=== PATIENT | female | born 1965 | race Caucasian/White ===

== ENCOUNTER 2016-06-04 12:47 | Emergency (ER) ==
[2016-06-04 12:59] VITALS: BP 134/78
--- NOTE | 2016-06-04 14:04 | PROVIDER DOCUMENTATION ---
HPI-Musculoskeletal Pain/Inj - GENERAL Source: patient - HX OF PRESENT ILLNESS-MUSKULOSKELTAL Quality of Pain: reports: dull Severity in ED: mild, moderate Onset/Duration: gradual, other (2 weeks) <Júnior Gavin - Last Filed: 06/04/16 14:04> - GENERAL Source: patient - HX OF PRESENT ILLNESS-MUSKULOSKELTAL Timing: still present, constant Modifying Factors: worse with: movement Any recent injury?: No Locality of Occurance: Home Similar Symptoms Previously?: No Recently seen or treated by another doctor?: No - LOWER EXTREMITY PAIN/INJURY Lower Extremities Pain: knee: right Context / Method of Injury: reports: unknown Associated Symptoms: reports: denies symptoms <Ethan Thompson - Last Filed: 06/04/16 14:09> - GENERAL Chief Complaint: Extremity Pain Stated Complaint: EXTREMITY PAIN Time Seen by Provider: 06/04/16 13:45 Review of Systems - Adult - REVIEW OF SYSTEMS - ADULT Constitutional: denies: chills, fever Eyes: reports: no symptoms reported Ears, Nose, Mouth & Throat: reports: no symptoms reported Cardiovascular: denies: chest pain, palpitations Respiratory: denies: cough, shortness of breath, wheezing Gastrointestinal: denies: abdominal pain, diarrhea, nausea, vomiting Genitourinary: reports: no symptoms reported Musculoskeletal: reports: joint pain. denies: back pain, joint swelling, neck pain Integumentary: reports: no symptoms reported Neurological: reports: no symptoms reported Psychiatric: reports: no symptoms reported Endocrine: reports: no symptoms reported Hematologic/Lymphatic: reports: no symptoms reported Allergic/Immunologic: reports: no symptoms reported All Other Systems: Reviewed and Negative <Ethan Thompson - Last Filed: 06/04/16 14:09> Past History - Adult - PAST MEDICAL HISTORY-ADULT Major Childhood Illnesses: reports: denies history Cardiovascular: reports: denies history Respiratory: reports: denies history Gastrointestinal: reports: denies history Obstetrical/Gynecological: reports: denies history Genitourinary: reports: denies history Musculoskeletal: reports: denies history Neurological: reports: denies history Psychiatric: reports: denies history Endocrine/Immune: reports: denies history Other Conditions: reports: denies history - PRIOR SURGERIES/PROCEDURES Surgical/Procedure History: reports: hysterectomy - PRIOR HOSPITALIZATIONS Prior Hospitalizations: reports: none - FAMILY HISTORY Family History: reviewed, not pertinent <Júnior Gavin - Last Filed: 06/04/16 14:04> - PAST MEDICAL HISTORY-ADULT Review of Records: reports: Old Records Reviewed, Nursing Assessment Review, Medications Reviewed - PRIOR SURGERIES/PROCEDURES Surgical/Procedure History: reports: cholecystectomy, hysterectomy, tonsillectomy - IMMUNIZATION STATUS Childhood Immunizations: See Nurse Assessment Flu Vaccine: See Nurse Assessment - FAMILY HISTORY Family History: reviewed, not pertinent - SOCIAL HISTORY Smoking: cigarettes, less than 1 pack/day Living Situation: family <Ethan Thompson - Last Filed: 06/04/16 14:09> Physical Exam-Injury Related - Physical Exam-Injury Related Initial Vital Signs Reviewed: Yes General Appearance: alert, no apparent distress Eyes: PERRL/EOMI, pink conjunctivae Head, Ears, Nose, Mouth & Throat: normocephalic/atraumatic, moist mucous membranes, normal ENT inspection Neck: full range of motion, normal inspection Respiratory: lungs clear, normal breath sounds, no respiratory distress, no accessory muscle use Cardiovascular: regular rate, rhythm, no edema, no murmur Abdominal Exam: normal bowel sounds, non tender, soft Back Exam: no CVA tenderness, no vertebral tenderness Extremity: no calf tenderness, normal capillary refill, pelvis stable, tenderness (right medial knee). negative: inflammation, joint effusion Integumentary: normal color, warm/dry Neurologic: grossly normal, no motor/sensory deficits Psych/Mental Status: normal mood/affect, normal thought content, normal thought process, oriented x 3 <Ethan Thompson - Last Filed: 06/04/16 14:09> Progress <Júnior Gavin - Last Filed: 06/04/16 14:04> <Ethan Thompson - Last Filed: 06/04/16 14:09> - PLAN OF CARE/RESULTS Progress/Plan/Lab Results: Vital Signs - 24 hr 06/04/16 12:57 Temperature 97.9 F Pulse Rate 79 Respiratory 18 Rate Blood Pressure 134/78 O2 Sat by Pulse 100 Oximetry Orders Category Date Time Status KNEE 3 VIEWS RIGHT [RAD] Stat Exams 06/04/16 12:57 Taken Lidocaine 1% [Xylocaine 1%] Med 06/04/16 14:05 Discontinued 10 ml INJ NOW ONE Methylprednisolone Acetate [Depo-Medrol] Med 06/04/16 14:05 Discontinued 40 mg IM NOW ONE (Ethan Thompson) Procedures - ADDITIONAL PROCEDURES Additional Procedure: Injection of Bursa/Joint (right knee) Time-Out Verification Completed?: No Site Prep: Betadine Anesthetic: 1%, Lidocaine/Xylocaine Volume of Anesthetic (ml's): 2 Procedure Comment: 40 mg depo-medrol injected <Ethan Thompson - Last Filed: 06/04/16 14:09> Departure <Júnior Gavin - Last Filed: 06/04/16 14:04> - Departure Time of Disposition Order: 14:08 Certified Medical Emergency: Emergent <Ethan Thompson - Last Filed: 06/04/16 14:09> - Departure DIAGNOSIS: Knee bursitis Disposition: HOME 01 Condition: Stable Additional Instructions: ED Follow Up Instructions: You have been treated by a care provider in the Emergency Department. These instructions are being provided to you so you can have an understanding of how to care for yourself upon discharge. Upon discharge from the Emergency Department, you are responsible for making arrangements for follow-up care by a physician of your choice. Take all prescribed medications as directed. Return to the Emergency Department immediately for any new or worsening symptoms. You may call the Physician Referral phone number at [phone] to obtain a list of Physicians who are taking new patients. Referrals: None,PCP [Primary Care Provider] - Moon Fernandez MD [STAFF PHYSICIAN] - Call for Appoint. 1-2days Instructions: Bursitis-SportsMed, Bursitis Physician Attestation
[2016-06-04] MEDS ORDERED: XYLOCAINE 1% INJ ONE (14:05)
[2016-06-04] MEDS ORDERED: DEPO-MEDROL IM ONE (14:05)
[2016-06-04] MEDS ORDERED: DEPO-MEDROL ONE (14:06)
[2016-06-04] MEDS ORDERED: XYLOCAINE-MPF 1% 5 ML ONE (14:06)
--- NOTE | 2016-06-04 15:15 | Diag Imaging Result Document ---
PROCEDURE NAME: KNEE 3 VIEWS RIGHT - 06/04/2016 PLAIN RADIOGRAPHS OF THE RIGHT KNEE, 3 VIEWS: COMPARISON: 05/15/2016. FINDINGS: There is no discrete fracture, dislocation, or intrinsic osseous lesion. The visualized joint spaces are essentially unremarkable. The surrounding soft tissues are grossly unremarkable. IMPRESSION: No evidence of acute osseous abnormality.
== END 2016-06-04 15:05 | disposition home or self-care (01) ==
LOC: P.ED 12:47
DX: M70.51 Other bursitis of knee, right knee (principal); M25.561 Pain in right knee
CPT/HCPCS: J1030